=== PATIENT | female | born 1945 | race Caucasian/White ===

== ENCOUNTER → 2020-08-03 | Outpatient (CLI) | payer MEDICARE ==
[~2020-08-03] MED LIST: CHOL10003 PO; METF-688 PO; OMEP40CA42 PO; VITAMIN B12 PO
== END | disposition home or self-care (01) ==
LOC: STAR 12:54
PROVIDERS: ATTEND Urology
DX: Z01.812 Encounter for preprocedural laboratory examination (principal); Z20.822 Contact with and (suspected) exposure to COVID-19; R94.31 Abnormal electrocardiogram [ECG] [EKG]
CPT/HCPCS: 87635; 93005

== ENCOUNTER 2020-08-08 06:21 | Day surgery (SDC) | payer MEDICARE ==
[~2020-08-08] VITALS: Ht 170.2 cm; Wt 106.8 kg
[2020-08-08] MEDS ORDERED: CHLORHEXIDINE 15 ML UDC MM STA (06:54)
[2020-08-08] MEDS ORDERED: LACTATED RINGERS 1,000 ML IV SCH (07:00)
[2020-08-08] MEDS ORDERED: OPIUM/BELLADONNA SUPP.RECT 16.2-60 MG ONE (07:10)
[2020-08-08 07:29] VITALS: BP 172/97
[2020-08-08] MEDS ORDERED: FENTANYL PF 100 MCG/2ML IV PRN (07:30)
[2020-08-08] MEDS ORDERED: ACETAMINOPHEN 325 MG TABLET PO PRN (07:30)
[2020-08-08] MEDS ORDERED: EPHEDRINE 50 MG/ML, 1ML IVPush PRN (07:30)
[2020-08-08] MEDS ORDERED: hydrALAzine 20 MG/ML, 1ML IV PRN (07:30)
[2020-08-08] MEDS ORDERED: HYDROmorphone 1 MG/ML, 1ML INJ IVPush PRN (07:30)
[2020-08-08] MEDS ORDERED: PROMETHAZINE 25 MG/ML, 1ML IVPush PRN (07:30)
[2020-08-08] MEDS ORDERED: ONDANSETRON 2MG/ML, 2ML IVPush PRN (07:30)
[2020-08-08] MEDS ORDERED: LABETALOL 5MG/ML, 20ML IV PRN (07:30)
[2020-08-08] MEDS ORDERED: OXYcodone 5 MG/5 ML ORAL.SOL UDC PO PRN (07:30)
[2020-08-08] MEDS ORDERED: LIDOCAINE-MPF 2% ,5ML ONE (08:11)
[2020-08-08] MEDS ORDERED: PROPOFOL 10 MG/ML, 20ML ONE (08:11)
[2020-08-08] MEDS ORDERED: SODIUM CHLORIDE 0.9% PF 10ML ONE (08:13)
[2020-08-08] MEDS ORDERED: CEFAZOLIN 1,000 MG ONE ×2 (08:13)
[2020-08-08] MEDS ORDERED: ONDANSETRON 2MG/ML, 2ML ONE (08:14)
[2020-08-08] MEDS ORDERED: DEXAMETHASONE 4 MG/ML, 1ML ONE ×4 (08:14)
[2020-08-08] MEDS ORDERED: KETOROLAC 30 MG/1 ML ONE (08:14)
[2020-08-08] MEDS ORDERED: FENTANYL PF 100 MCG/2ML ONE (08:23)
== END 2020-08-08 10:10 | disposition home or self-care (01) ==
LOC: OUT 06:21
PROVIDERS: ATTEND Urology
DX: N30.20 Other chronic cystitis without hematuria (principal); N32.89 Other specified disorders of bladder; K21.9 Gastro-esophageal reflux disease without esophagitis; E11.9 Type 2 diabetes mellitus without complications; Z79.84 Long term (current) use of oral hypoglycemic drugs; Z79.899 Other long term (current) drug therapy; Z88.5 Allergy status to narcotic agent
CPT/HCPCS: 52204; 82962; 88305; J0690; J1100; J1885; J2405; J2704; J3010; J7120